=== PATIENT | male | born 1995 | race Caucasian/White ===

== ENCOUNTER 2025-03-06 16:44 | Emergency (ER) | payer BC ==
[2025-03-06] MEDS ORDERED: Bacitracin 1 PK ONE (17:43)
[2025-03-06] MEDS ORDERED: Lidocaine 1% w/Epinephrine 1:100K 20 ML VIAL ONE (17:43)
[2025-03-06] MEDS ORDERED: Acetaminophen 500 MG TAB ONE (17:51)
[2025-03-06] MEDS ORDERED: Ibuprofen 200 MG TAB ONE (17:51)
== END 2025-03-06 19:22 | disposition home or self-care (01) ==
LOC: ERS 16:44
DX: S06.0X0A Concussion without loss of consciousness, initial encounter (principal); S16.1XXA Strain of muscle, fascia and tendon at neck level, initial encounter; X58.XXXA Exposure to other specified factors, initial encounter
CPT/HCPCS: 12001; 70450; 72125